=== PATIENT | female | born 1960 | race African-American/Black ===

== ENCOUNTER 2017-06-30 14:07 | Emergency (ER) | payer SELFPAY ==
--- NOTE | 2017-06-30 16:07 | RAD ---
2 VIEWS CHEST: Date: 06/30/17 HISTORY: Cough. FINDINGS: PA and lateral views of chest obtained. Comparison made to previous exam from 02/20/15. Two views of the chest demonstrate the lungs to be well aerated. No evidence of active intrathoracic disease seen. No evidence of effusions, pneumonia, or pneumothorax seen. IMPRESSION: Normal 2 views chest. POS: [facility]
[2017-06-30] MEDS ORDERED: Ketorolac Tromethamine 30 MG/ML VIAL ONE (16:13)
== END 2017-06-30 16:31 | disposition home or self-care (01) ==
LOC: ERS 14:07
DX: J20.9 Acute bronchitis, unspecified (principal); D64.9 Anemia, unspecified; F31.9 Bipolar disorder, unspecified; F41.9 Anxiety disorder, unspecified; F17.210 Nicotine dependence, cigarettes, uncomplicated
CPT/HCPCS: 71046; 96372; J1885

== ENCOUNTER 2019-04-06 11:31 | Emergency (ER) | payer SELFPAY ==
--- NOTE | 2019-04-06 13:53 | RAD ---
EXAM: CHEST ONE VIEW HISTORY: Cold-like symptoms. Body aches. Cough. COMPARISON: 06/30/2017 FINDINGS: The cardiac silhouette and pulmonary vasculature is within normal limits. Mild chronic lung changes a re again seen predominantly on the right. No consolidation or pleural fluid is seen. The osseous structures are intact. Chest is overall stable compared to prior exam. IMPRESSION: Mild chronic lung changes without evidence of an acute cardiopulmonary process.
== END 2019-04-06 14:05 | disposition home or self-care (01) ==
LOC: ERS 11:31
DX: J11.1 Influenza due to unidentified influenza virus with other respiratory manifestations (principal); D64.9 Anemia, unspecified; F41.9 Anxiety disorder, unspecified; F31.9 Bipolar disorder, unspecified; F17.210 Nicotine dependence, cigarettes, uncomplicated
CPT/HCPCS: 71045; 87804

== ENCOUNTER 2020-04-13 13:43 | Emergency (ER) | payer SELFPAY | END 2020-04-13 15:00 | disposition home or self-care (01) | LOC: ERS 13:43 | DX: S39.012A Strain of muscle, fascia and tendon of lower back, initial encounter (principal); D64.9 Anemia, unspecified; F17.210 Nicotine dependence, cigarettes, uncomplicated; W10.8XXA Fall (on) (from) other stairs and steps, initial encounter; Y92.009 Unspecified place in unspecified non-institutional (private) residence as the place of occurrence of the external cause | CPT/HCPCS: 99281 ==